=== PATIENT | male | born 1975 | race Caucasian/White ===

== ENCOUNTER → 2018-11-29 | Emergency (ER) | payer OTHER ==
[~2018-11-29] VITALS: Ht 182.9 cm; Wt 113.4 kg
[~2018-11-29] MED LIST: DICLOFENAC POTA50 MG PO; ORPHENADRINE C100 MG PO
== END | disposition home or self-care (01) ==
LOC: ER 20:30
DX: E86.0 Dehydration (principal); F12.10 Cannabis abuse, uncomplicated; F10.10 Alcohol abuse, uncomplicated